=== PATIENT | female | born 1960 | race Caucasian/White ===

== ENCOUNTER → 2016-10-09 | Outpatient (CLI) | payer BC ==
--- NOTE | 2016-10-09 13:19 | MR ---
EXAMINATION TYPE: MR lumbar spine wo/w con DATE OF EXAM: 10/09/2016 10:23 AM COMPARISON: NONE HISTORY: acute transverse myelitis TECHNIQUE: Multiplanar, multisequence images of the lumbar spine were acquired utilizing 12 mL intravenous Multi Ernie gadolinium contrast. Diffusion weighted imaging was performed. L1-L2: Normal disc appearance without desiccation. No herniation, protrusion or disc bulging. No ca nal stenosis is present. Foramina are patent bilaterally. L2-L3: Normal disc appearance without desiccation. No herniation, protrusion or disc bulging. No ca nal stenosis is present. Foramina are patent bilaterally. L3-L4: Posterior broad-based disc bulge causes minimal anterior mass effect on the thecal sac. There is mild facet arthropathy with hypertrophic change causing mild lateral recess encroachment. No signi ficant central canal stenosis or foraminal encroachment. There is mild disc desiccation. L4-L5: Increased signal at the posterior aspect of the disc is compatible with an annular tear, broad -based posterior disc bulge causes some mild deformity of the anterior thecal sac. No significant for aminal encroachment or central stenosis. Hypertrophic change of the ligamentum flavum causes mild lat eral recess stenosis. There is mild disc desiccation. Mild loss of disc height. L5-S1: Broad-based posterior disc bulge causes minimal anterior mass effect on the thecal sac, possib ly contacting the proximal S1 nerve roots. No significant central canal stenosis or foraminal encroac hment. Mild disc desiccation present. Lumbar segments are intact. No paraspinal masses are identified. Conus medullaris has a normal appe arance. Lumbar vertebral bodies show preserved height and alignment. Mild multilevel spondylosis is p resent with endplate discogenic marrow signal change. Cystic focus within the liver appears multisept ated and measures approximately 12.3 mm, likely benign. Tarlov cyst noted of the sacrum. IMPRESSION: Degenerative disc disease, facet arthropathy as described.
== END | disposition home or self-care (01) ==
LOC: RADMRIMAIN 09:37
PROVIDERS: ATTEND Psychiatry & Neurology Neurology
DX: M51.36 Other intervertebral disc degeneration, lumbar region (principal); M46.96 Unspecified inflammatory spondylopathy, lumbar region; G37.3 Acute transverse myelitis in demyelinating disease of central nervous system
CPT/HCPCS: 72158; A9577

== ENCOUNTER → 2016-10-24 | Outpatient (CLI) | payer BC ==
--- NOTE | 2016-10-24 10:57 | MR ---
EXAMINATION TYPE: MR cervical spine wo/w con DATE OF EXAM: 10/24/2016 10:25 AM COMPARISON: NONE HISTORY: Transverse myelitis, periphal neuropathy TECHNIQUE: Multiplanar, multisequence images of the cervical spine were acquired utilizing 12 mL intravenous Mul tiHance gadolinium contrast. Diffusion weighted imaging was performed. C2-C3: No evidence for degenerative disc disease. No disc bulge/herniation or protrusion. No Canal stenosis. Foramina are patent bilaterally. C3-C4: No evidence for degenerative disc disease. No disc bulge/herniation or protrusion. No Canal stenosis. Foramina are patent bilaterally. C4-C5: No evidence for degenerative disc disease. No disc bulge/herniation or protrusion. No Canal stenosis. Foramina are patent bilaterally. C5-C6: No evidence for degenerative disc disease. No disc bulge/herniation or protrusion. No Canal stenosis. Foramina are patent bilaterally. C6-C7: No evidence for degenerative disc disease. No disc bulge/herniation or protrusion. No Canal stenosis. Foramina are patent bilaterally. C7-T1: No evidence for degenerative disc disease. No disc bulge/herniation or protrusion. No Canal stenosis. Foramina are patent bilaterally. Cervical segments are intact. There is normal alignment. Cervical spinal cord is of normal signal. Craniovertebral junction relationships are within normal limits. No pathologic enhancement is ident ified. IMPRESSION: No distinct abnormality appreciated.
== END ==
LOC: RADMRIMAIN 09:35
PROVIDERS: ATTEND Psychiatry & Neurology Neurology
DX: G37.3 Acute transverse myelitis in demyelinating disease of central nervous system (principal)
CPT/HCPCS: 72156; A9577

== ENCOUNTER → 2017-01-11 | Outpatient (CLI) | payer BC ==
--- NOTE | 2017-01-11 22:03 | MR ---
EXAMINATION TYPE: MR thoracic spine wo/w con DATE OF EXAM: 01/11/2017 9:31 AM COMPARISON: NONE HISTORY: acute transverse myelitis CONTRAST: Performed utilizing 10 mL intravenous MultiHance gadolinium contrast. TECHNIQUE: Multiplanar, multiecho imaging on a 3.0 Rocio magnet is performed through the thoracic spi ne. Spinal cord maintains normal signal through its visualized course. No suspicious signal abnormality t o account for transverse myelitis is evident. Vertebral body alignment is normal. Vertebral body heights are preserved. Disc heights are preserved. Disc hydration levels are preserved. No spinal canal stenosis is evident. No abnormal enhancement is evident. IMPRESSIONS: 1. Normal MRI thoracic spine. 2. No signal abnormality within the spinal cord.
== END ==
LOC: RADMRIMAIN 08:41
PROVIDERS: ATTEND Psychiatry & Neurology Neurology
DX: G37.3 Acute transverse myelitis in demyelinating disease of central nervous system (principal)
CPT/HCPCS: 72157; A9577

== ENCOUNTER → 2018-12-29 | Outpatient (CLI) | payer BC ==
--- NOTE | 2018-12-30 11:31 | MM ---
Reason for exam: screening (asymptomatic). Last mammogram was performed 3 years and 5 months ago. History: Patient is postmenopausal. Family history of breast cancer in maternal aunt at age 60. Took hormonal contraceptives for 25 years. Physical Findings: A clinical breast exam by your physician is recommended on an annual basis and results should be correlated with mammographic findings. MG Screening Mammo w CAD Bilateral CC and MLO view(s) were taken. Prior study comparison: August 02, 2015, bilateral MG 3d work up w/cad [facility]. July 06, 2015, bilateral MG screening mammo w CAD. The breast tissue is heterogeneously dense. This may lower the sensitivity of mammography. Asymmetric breast tissue left posterior breast, ,stable. There is no discrete abnormality. ASSESSMENT: Negative, BI-RAD 1 RECOMMENDATION: Routine screening mammogram of both breasts in 1 year.
== END | disposition home or self-care (01) ==
LOC: RADMAMWWP 10:10
PROVIDERS: ATTEND Family Medicine
DX: Z12.31 Encounter for screening mammogram for malignant neoplasm of breast (principal); Z80.3 Family history of malignant neoplasm of breast
CPT/HCPCS: 77067

== ENCOUNTER → 2022-12-03 | Outpatient (CLI) | payer BC, MEDICARE ==
--- NOTE | 2022-12-04 10:16 | MM ---
Reason for Exam: Screening (asymptomatic). Last mammogram was performed 3 year(s) and 11 month(s) ago. Patient History: Menarche at age 18. First Full-Term at age 30. Postmenopausal. Patient used Hormonal Contraceptives for 25 years. Maternal aunt had breast cancer, age 60. Risk Values: Estee 5 year model risk: 1.5%. NCI Lifetime model risk: 7.4%. Prior Study Comparison: 07/06/2015 Bilateral Screening Mammogram, [facility]. 08/02/2015 Bilateral Diagnostic Mammogram, [facility]. 12/29/2018 Bilateral Screening Mammogram, [facility]. Tissue Density: The breast tissue is heterogeneously dense. This may lower the sensitivity of mammography. Analyzed By CAD. Overall Assessment: Negative, BI-RAD 1 Management: Screening Mammogram of both breasts in 1 year. Electronically signed and approved by: Serafin Parikh M.D.
== END | disposition home or self-care (01) ==
LOC: RADMAMWWP 09:32
PROVIDERS: ATTEND Family Medicine
DX: Z12.31 Encounter for screening mammogram for malignant neoplasm of breast (principal); Z78.0 Asymptomatic menopausal state; Z80.3 Family history of malignant neoplasm of breast
CPT/HCPCS: 77067

== ENCOUNTER → 2023-07-29 | Outpatient (CLI) | payer BC, MEDICARE ==
--- NOTE | 2023-07-29 11:57 | MR ---
EXAMINATION TYPE: MR lumbar spine wo/w con DATE OF EXAM: 07/29/2023 COMPARISON: MRI lumbar spine 10/09/2016 HISTORY: Lumbar spinal stenosis, BLE atrophy. TECHNIQUE: Multiplanar, multisequence images of the lumbar spine were acquired without and with 6 mL intravenous Gadavist gadolinium contrast. FINDINGS: No abnormal contrast enhancement. Lumbar segments are intact. No paraspinal masses are evangelina ntified. Conus medullaris has a normal appearance. Multilevel disc desiccation. Sacral Tarlov cysts. T12-L1: No herniation, protrusion or disc bulging. No canal stenosis is present. Foramina are paten t bilaterally. L1-L2: No herniation, protrusion or disc bulging. No canal stenosis is present. Foramina are patent bilaterally. L2-L3: No herniation, protrusion or disc bulging. No canal stenosis is present. Foramina are patent bilaterally. L3-L4: Broad-based disc bulge with mild central canal stenosis. Annular fissure demonstrated. Ligamen fadia flavum buckling demonstrated. Bilateral facet arthropathy. Minimal bilateral neural foraminal na rrowing. L4-L5: Broad-based disc bulge without significant central canal stenosis. Annular fissure demonstrate d. Ligamentum flavum buckling demonstrated. Bilateral facet arthropathy. No significant neural forami nal stenosis. L5-S1: Broad-based disc bulge without significant central canal stenosis. Bilateral facet arthropathy . Mild left neural foraminal stenosis. Right neural foramen is patent. IMPRESSION: Mild multilevel degenerative disease and facet arthropathy as described above. This is most prominent at L3-L4 with mild central canal stenosis. No abnormal contrast enhancement.
== END | disposition home or self-care (01) ==
LOC: RADMRIMAIN 10:21
PROVIDERS: ATTEND Psychiatry & Neurology Neurology
DX: M48.061 Spinal stenosis, lumbar region without neurogenic claudication (principal); M51.16 Intervertebral disc disorders with radiculopathy, lumbar region; M47.26 Other spondylosis with radiculopathy, lumbar region; M48.8X6 Other specified spondylopathies, lumbar region
CPT/HCPCS: 72158; A9585

== ENCOUNTER → 2023-08-05 | Outpatient (CLI) | payer BC, MEDICARE ==
[2023-08-05 15:28] LABS: Albumin 4.8 g/dL (3.8-4.9); Protein, Total 7.9 g/dL (6.2-8.2)
[2023-08-06 17:20] LABS: Gamma Globulin 1.22 g/dL (0.70-1.50)
== END | disposition home or self-care (01) ==
LOC: LABWHC1 11:20
PROVIDERS: ATTEND Psychiatry & Neurology Neurology
DX: G62.9 Polyneuropathy, unspecified (principal); Z79.899 Other long term (current) drug therapy
CPT/HCPCS: 36415; 82306; 82607; 84165

== ENCOUNTER → 2024-04-05 | Outpatient (CLI) | payer BC, MEDICARE ==
--- NOTE | 2024-04-12 08:32 | MM ---
Reason for Exam: Screening (asymptomatic). Last mammogram was performed 1 year(s) and 4 month(s) ago. Patient History: Menarche at age 18. First Full-Term at age 30. Postmenopausal. Patient used Hormonal Contraceptives for 25 years. Maternal aunt had breast cancer, age 60. Risk Values: Estee 5 year model risk: 1.5%. NCI Lifetime model risk: 7.2%. Prior Study Comparison: 08/02/2015 Bilateral Diagnostic Mammogram, [facility]. 12/29/2018 Bilateral Screening Mammogram, [facility]. 12/03/2022 Bilateral MG screening mammo w CAD, [facility]. Tissue Density: The breasts are heterogeneously dense, which may obscure small masses. Findings: Analyzed By CAD. There is no suspicious group of microcalcifications or new suspicious mass in either breast. Benign calcifications right breast. Overall Assessment: Benign, BI-RAD 2 Management: Screening Mammogram of both breasts in 1 year. . Patient should continue monthly self-breast exams. A clinical breast exam by your physician is recommended on an annual basis. This exam should not preclude additional follow-up of suspicious palpable abnormalities. Note on Estee scores and lifetime risk: 1. A Estee score greater than 3% is considered moderate risk. If this is the case, consider specialist referral to assess eligibility for a risk reducing agent. 2. If overall lifetime risk for the development of breast cancer is 20% or higher, the patient may qualify for future screening with alternating mammogram and breast MRI. Electronically signed and approved by: Wilmer Baldwin M.D. Radiologis
== END | disposition home or self-care (01) ==
LOC: RADMAMWWP 10:11
PROVIDERS: ATTEND Family Medicine
DX: Z12.31 Encounter for screening mammogram for malignant neoplasm of breast (principal); R92.333 Mammographic heterogeneous density, bilateral breasts; Z78.0 Asymptomatic menopausal state; Z80.3 Family history of malignant neoplasm of breast
CPT/HCPCS: 77063; 77067

== ENCOUNTER → 2024-07-29 | Outpatient (CLI) | payer BC, MEDICARE ==
--- NOTE | 2024-07-31 18:08 | BD ---
EXAMINATION TYPE: Axial Bone Density DATE OF EXAM: 07/29/2024 CLINICAL HISTORY: 64 years old Female. ICD-10 CODE: Z78.0 ASYMP YAJAIRA E55.9 VITAMIN D DEFI Z96.641 R HI , Additional History: Height: 67.7 Weight: 126 FRAX RISK QUESTIONS: Glucocorticoids (More than 3mos): yes (Ex: prednisone, prednisolone, methylprednisolone, dexamethasone, and hydrocortisone). History of Fracture in Adulthood: yes Secondary Osteoporosis: Current Tobacco Use: yes RISK FACTORS HISTORY OF: Surgery to Spine/Hip(right/left)/Wrist (right/left): right hip replacement When: 2023 MEDICATIONS: Thyroid Medications: Which medication: Levothyroxine How Long: about 10 years EXAM MEASUREMENTS: Bone mineral densitometry was performed using the Telnexus System. Bone mineral density as measured about the Lumbar spine is: ----- L1-L4(G/cm2): 1.159 T Score Values are as follows: ----- L1: -0.6 ----- L2: 0.1 ----- L3: 0.0 ----- L4: -0.4 ----- L1-L4: -0.2 Z Score Values are as follows: ----- L1: 1.0 ----- L2: 1.7 ----- L3: 1.7 ----- L4: 1.2 ----- L1-L4: 1.4 First dexa at [facility] Bone mineral density about the L hip (g/cm2): 0.752 T Score values are as follows: -----L Neck: -1.7 -----L Total: -2.0 Z Score values are as follows: -----L Neck: -0.2 -----L Total: -0.8 First dexa at [facility] FRAX%s: The graph provided illustrates a 13.4% chance for a major osteoporotic fx and a 1.7% chance f or the hips probability for fx in 10 years time. IMPRESSION: Osteopenia (T Score between -2.5 and -1). There is slightly increased risk of fracture and the patient may be considered for treatment. Re-Screen 2-5 years. NOTE: T-SCORE=SD OF THE YOUNG ADULT MEAN. [facility], , 07/31/2024 6:06 PM
== END | disposition home or self-care (01) ==
LOC: RADBDWWP 10:52
PROVIDERS: ATTEND Family Medicine
DX: E55.9 Vitamin D deficiency, unspecified (principal); M85.89 Other specified disorders of bone density and structure, multiple sites; Z68.1 Body mass index [BMI] 19.9 or less, adult; Z96.641 Presence of right artificial hip joint
CPT/HCPCS: 77080

== ENCOUNTER → 2025-04-06 | Outpatient (CLI) | payer BC, MEDICARE ==
--- NOTE | 2025-04-06 13:59 | MM ---
Reason for Exam: Screening (asymptomatic). Last screening mammogram was performed 12 month(s) ago. Patient History: Menarche at age 18. First Full-Term at age 30. Postmenopausal. Patient used Hormonal Contraceptives for 25 years. Maternal aunt had breast cancer, age 60. Risk Values: Estee 5 year model risk: 1.5%. NCI Lifetime model risk: 7.0%. Prior Study Comparison: 12/29/2018 Bilateral Screening Mammogram, [facility]. 12/03/2022 Bilateral MG screening mammo w CAD, [facility]. 04/05/2024 Bilateral MG 3D screening mammo w/cad, [facility]. Tissue Density: The breasts are heterogeneously dense, which may obscure small masses. Findings: Analyzed By CAD. There is no suspicious group of microcalcifications or new suspicious mass in either breast. Overall Assessment: Negative, BI-RAD 1 Management: Screening Mammogram of both breasts in 1 year. . Patient should continue monthly self-breast exams. A clinical breast exam by your physician is recommended on an annual basis. This exam should not preclude additional follow-up of suspicious palpable abnormalities. Note on Estee scores and lifetime risk: 1. A Estee score greater than 3% is considered moderate risk. If this is the case, consider specialist referral to assess eligibility for a risk reducing agent. 2. If overall lifetime risk for the development of breast cancer is 20% or higher, the patient may qualify for future screening with alternating mammogram and breast MRI. [facility], , 04/06/2025 10:12 AM. Electronically signed and approved by: Rojas Myers M.D. Radiologis
== END | disposition home or self-care (01) ==
LOC: RADMAMWWP 09:57
PROVIDERS: ATTEND Family Medicine
DX: Z12.31 Encounter for screening mammogram for malignant neoplasm of breast (principal); R92.333 Mammographic heterogeneous density, bilateral breasts; Z80.3 Family history of malignant neoplasm of breast; Z78.0 Asymptomatic menopausal state; Z92.0 Personal history of contraception
CPT/HCPCS: 77063; 77067